=== PATIENT | female | born 1990 | race Caucasian/White ===

== ENCOUNTER → 2021-06-01 10:57 | Outpatient (CLI) | payer OTHER, SELFPAY ==
[2021-06-02 08:26] LABS: Candida species Positive (Negative); Gardnerella vaginalis Positive (Negative); Trichomoas vaginalis Negative (Negative)
== END ==
PROVIDERS: Visit Provider Obstetrics & Gynecology
DX: N89.8 Other specified noninflammatory disorders of vagina (principal)
CPT/HCPCS: 87070; 87077; 87205; 87480; 87510; 87660

== ENCOUNTER → 2021-09-28 15:16 | Outpatient (CLI) | payer OTHER, SELFPAY ==
[2021-09-29 10:35] LABS: Candida species Negative (Negative); Gardnerella vaginalis Positive (Negative); Trichomoas vaginalis Negative (Negative)
== END ==
PROVIDERS: Visit Provider Obstetrics & Gynecology
DX: A49.9 Bacterial infection, unspecified (principal); N76.0 Acute vaginitis
CPT/HCPCS: 87070; 87077; 87147; 87205; 87480; 87510; 87660

== ENCOUNTER → 2022-01-17 17:12 | Outpatient (CLI) | payer OTHER, MEDICAID, SELFPAY ==
[2022-01-19 05:12] LABS: Candida species Negative (Negative); Gardnerella vaginalis Negative (Negative); Trichomoas vaginalis Negative (Negative)
== END ==
PROVIDERS: PCP Family Medicine; Visit Provider Physician Assistant Medical
DX: N76.0 Acute vaginitis (principal)
CPT/HCPCS: 87070; 87205; 87480; 87510; 87660